=== PATIENT | female | born 1970 | race Caucasian/White ===

== ENCOUNTER 2023-09-16 13:14 | Emergency (ER) | payer OTHER ==
[~2023-09-16] VITALS: Ht 149.9 cm; Wt 73.0 kg
[2023-09-16 13:27] VITALS: TEMP 98.4
[2023-09-16] MEDS ORDERED: CETI1TAB9 PO (13:47)
[2023-09-16 13:55] VITALS: BP 130/75; O2SAT 99
== END 2023-09-16 13:52 | disposition home or self-care (01) ==
LOC: ER 13:27
DX: J06.9 Acute upper respiratory infection, unspecified (principal); E03.9 Hypothyroidism, unspecified
CPT/HCPCS: 11042

== ENCOUNTER 2023-10-19 09:49 | Emergency (ER) | payer OTHER ==
[~2023-10-19] VITALS: Ht 162.6 cm; Wt 70.3 kg
[~2023-10-19 09:49] MED LIST: CETI1TAB9 PO
[2023-10-19] MEDS: KETOROLAC TROMETHAMINE 15 MG/ML VIAL IM ONE (10:15)
[2023-10-19] MEDS ORDERED: NAPR-1164 PO (10:19)
[2023-10-19] MEDS ORDERED: KETOROLAC TROMETHAMINE 15 MG/ML VIAL ONE (10:32)
[2023-10-19 11:07] VITALS: BP 147/84; TEMP 98.6; O2SAT 98
== END 2023-10-19 11:07 | disposition home or self-care (01) ==
LOC: ER 09:49
DX: M54.6 Pain in thoracic spine (principal); E03.9 Hypothyroidism, unspecified
CPT/HCPCS: 99283; 96372; J1885